=== PATIENT | male | born 1965 | race Caucasian/White ===

== ENCOUNTER 2025-09-23 11:52 | Emergency (ER) | payer OTHER ==
[2025-09-23] MEDS ORDERED: Sodium Chloride 0.9% 10 ML Syringe FLUSH PRN (11:57)
[2025-09-23] MEDS ORDERED: Iopamidol 755 Mg/ML 100 ML Bottle IV SCH (12:00)
[2025-09-23 12:22] LABS: BASOPHILS ABSOLUTE AUTO 0.06 K/uL (0.00-0.10); BASOPHILS PERCENT AUTO 0.4 % (0.1-1.3); EOSINOPHILS PERCENT AUTO 0.1 % (0.0-5.4); IMMATURE GRAN ABSOLUTE AUTO 0.13 K/uL (0.00-0.23); IMMATURE GRAN PERCENT AUTO 0.8 % (0.0-0.7); LYMPHOCYTES ABSOLUTE AUTO 0.81 K/uL (0.8-3.3); LYMPHOCYTES PERCENT AUTO 4.9 % (11.4-47.7); MONOCYTES ABSOLUTE AUTO 1.55 K/uL (0.20-0.90); MONOCYTES PERCENT AUTO 9.4 % (3.3-12.6); NEUTROPHILS ABSOLUTE AUTO 13.91 K/uL (1.0-7.6); NEUTROPHILS PERCENT AUTO 84.4 % (40.0-78.1); PLATELET COUNT,PLT 196 K/uL (130-375); RED BLOOD CELL COUNT 6.27 M/uL (4.14-5.76); WHITE BLOOD CELL COUNT,WBC 16.5 K/uL (3.2-11.0)
[2025-09-23 12:29] LABS: EOSINOPHILS ABSOLUTE AUTO 0.01 K/uL (0.00-0.40)
[2025-09-23 12:33] LABS: INR 1.1; PTT,PARTIAL THROMBOPLSTIN TIME 25.8 sec (21.8-27.3)
[2025-09-23 12:39] LABS: A/G RATIO 1.2 (1.2-2.2); ALANINE AMINOTRANSFERASE,ALT 115 U/L (12-78); ASPARTATE AMNIOTRANSFERASE,AST 175 U/L (15-37); BILIRUBIN TOTAL 1.7 mg/dL (0.2-1.0); BLOOD UREA NITROGEN,BUN 17 mg/dL (7-18); CARBON DIOXIDE,CO2 28 mmol/L (21-32); CHLORIDE,CL 98 mmol/L (100-108); CREATININE 1.5 mg/dL (0.8-1.3); EST CRCL DRUG DOSING (CG) 58.92 mL/min; ESTIMATED GFR 54 mL/min (>60); GLUCOSE RANDOM 133 mg/dL (74-106); PROTEIN TOTAL,TP 7.7 g/dL (6.4-8.2); SODIUM,NA 139 mmol/L (140-148); TROPONIN I HIGH SENSITIVITY 58.3 pg/mL (<=60.3)
[2025-09-23 12:42] LABS: POTASSIUM,K 2.8 mmol/L (3.6-5.2)
[2025-09-23] MEDS: Potassium Chloride 20 MEQ in Premix Bag 1 BAG IV ONE (13:03)
[2025-09-23] MEDS: Labetalol 100 MG in Sodium Chloride 0.9% 100 ML IV SCH (13:09)
[2025-09-23] MEDS ORDERED: Potassium Chloride 20 MEQ Tab.ER PO SCH (21:00)
== END 2025-09-23 14:43 ==
LOC: JP.ED 11:52
DX: I62.9 Nontraumatic intracranial hemorrhage, unspecified (principal)
CPT/HCPCS: 36415; 70450; 80053; 84484; 85025; 85610; 85730; 93005; 96365; 96366; 96368; 99291; 99292; J1920; J2404; J3480; J7050; 82947